=== PATIENT | male | born 1955 | race Caucasian/White ===

== ENCOUNTER 2024-01-06 07:19 | Emergency (ER) | payer MEDICAID ==
[~2024-01-06] VITALS: Ht 157.5 cm; Wt 70.0 kg
[2024-01-06 07:27] VITALS: O2SAT 98
[2024-01-06] MEDS: OXYMETAZOLINE HCL NASAL SPRAY 15ML LEFTNSTRL SCH (08:23)
[2024-01-06] MEDS: TRANEXAMIC ACID 1,000MG/10ML TP ONE (08:23)
[2024-01-06 09:46] VITALS: BP 132/78; PULSE 92; RESP 16; TEMP 36.66960; O2SAT 97
== END 2024-01-06 09:50 | disposition home or self-care (01) ==
LOC: ER 07:19
DX: R04.0 Epistaxis (principal)
CPT/HCPCS: 99282